=== PATIENT | female | born 1965 | race Caucasian/White ===

== ENCOUNTER 2019-10-22 17:29 | Emergency (ER) | payer SELFPAY ==
[2019-10-22 17:36] VITALS: BP 157/94; PULSE 102; RESP 18; TEMP 37.2; O2SAT 100; BMI 22.3
--- NOTE | 2019-10-22 17:37 | ED_ITS ---
Documented by User: Bessy Beltran DO 10/22/19 18:23 HPI - Neuro Symptoms/Deficit General: Chief Complaint: Extremity Injury, Upper Stated Complaint: arm numbness Time Seen by Provider: 10/22/19 17:36 History of Present Illness: HPI Narrative: Pt c/o pain in her right breast and down her axilla and down her right arm, It has gone on for 4 years on and off. 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 no fever no sob Onset (ago): year(s) Location: right arm History of same: Yes Severity: similar to previous episodes Quality: numb, tingling and other (heavy) Relieving factors: none Exacerbating factors: none Context: gradual onset Associated symptoms: Reports no associated symptoms; Deny headache(s), nausea or vomiting Review of Systems General: Reports: 10 or more systems reviewed and unremarkable except in HPI and below Const: Denies: fever, chills or fatigue ENMT: Denies: throat pain Card: Denies: swelling of feet/ankles Resp: Denies: shortness of breath or productive cough GI: Denies: abdominal pain, nausea, vomiting, diarrhea, constipation or blood in stool : Denies: difficulty urinating Musc: Denies: back pain or extremity swelling Skin/Breast: Denies: rash Neuro: Reports: numbness in extremities and weakness in extremities (heaviness); Denies: headache PFSH ED PFSH: Social History Smoking and tobacco status: never smoked Physical Exam Const: COMMON NORMALS: no apparent distress and oriented x3 GENERAL APPEARANCE: cooperative; not in distress HENMT: COMMON NORMALS: normocephalic HEAD & SCALP: normal to inspection and normocephalic MOUTH: oral and palatal mucosa normal and lip normal THROAT: posterior oropharynx normal and tonsils normal Neck/C-Spine: COMMON NORMALS: full ROM, no lymphadenopathy, supple and no meningeal signs GENERAL: Yes normal visual inspection and Yes trachea midline Chest: COMMONS NORMALS: inspection of chest normal and inspection of breasts normal (no lumps or bumps) BREAST/AXILLA INSPECTION: Yes normal inspection of the axillae NIPPLE/AREOLA: Yes nipples/areola normal Resp: COMMON NORMALS: normal respiratory effort and clear to auscultation bilaterally EFFORT & INSPECTION: Yes able to speak in complete sentences and No respiratory distress AUSCULTATION: clear to auscultation bilaterally, no rales, no rhonchi and no wheezes Cardio: COMMON NORMALS: regular rate, regular rhythm, S1 normal heart sound, S2 normal heart sound and no murmurs RATE: regular rate RHYTHM: regular rhythm HEART SOUNDS: S1 normal and S2 normal PERIPHERAL PULSES: radial pulses present and dorsalis pedis pulses present GI: COMMON NORMALS: normal to inspection, nondistended, normoactive bowel sounds, soft to palpation and non-tender INSPECTION: Yes normal to inspection AUSCULTATION: Yes normoactive bowel sounds PALPATION: Yes soft, No tender, No guarding and No rigid RECTAL EXAM: deferred : COMMON NORMALS: Yes no CVA tenderness BLADDER/KIDNEY EXAM: Yes no CVA tenderness Back/Pelvis: COMMON NORMALS: no CVA tenderness Extremity: COMMON NORMALS: normal to inspection, full ROM, normal capillary refill, no calf tenderness and no pedal edema Neuro: COMMON NORMALS: oriented x3, CN's II-XII intact bilaterally, moves all extremities and no focal motor deficits MENINGEAL SIGNS: Yes no meningeal signs Skin: COMMON NORMALS: no rashes or lesions noted GENERAL SKIN EXAM: no rashes or lesions noted Course Vital Signs: Vital signs: Vital Signs Temperature 98.9 F 10/22/19 17:36 Pulse Rate 88 10/22/19 19:11 Respiratory Rate 16 10/22/19 19:11 Blood Pressure 138/84 10/22/19 19:11 Pulse Oximetry 99 10/22/19 19:11 MDM - Neuro Symptoms/Deficit Lab Data: Labs: Lab Results 10/22/19 10/22/19 10/22/19 Range/Units 20:45 20:45 20:45 WBC 7.4 (4.0-10.0) 10^3/ uL RBC 4.55 (4.1-5.3) 10^6/u L Hgb 13.5 (11.5-15.3) g/dL Hct 41.0 (37.0-47.0) % MCV 90.1 (81-99) fL MCH 29.7 (28.0-34.0) pg MCHC 32.9 (30.0-36.0) g/dL RDW 12.3 (12.1-15.1) % Plt Count 334 (130-400) 10^3/c mm MPV 10.0 (7.4-10.4) fL Neut % (Auto) 48.9 % Lymph % (Auto) 41.3 % [place] % (Auto) 7.6 % Eos % (Auto) 1.6 % Baso % (Auto) 0.5 % Neut # (Auto) 3.6 (1.8-7.7) 10^3/u L Lymph # (Auto) 3.1 (0.8-4.8) 10^3/u L [place] # (Auto) 0.6 (0.2-0.9) 10^3/u L Eos # (Auto) 0.1 (0.0-0.8) 10^3/u L Baso # (Auto) 0.0 (0.0-0.1) 10^3/u L Nucleated RBC % (a uto) 0 % Nucleated RBCs # 0.0 /100WBC Sodium 143 (136-145) mmol/L Potassium 3.9 (3.5-5.1) mmol/L Chloride 103 (98-107) mmol/L Carbon Dioxide 30 H (22-29) mmol/L Anion Gap 13.9 (5-19) BUN 13 (6-20) mg/dL Creatinine 0.8 (0.5-0.9) mg/dL GFR Calculation 75.0 L (90-130) mL/min Glucose 93 (65-115) mg/dL Calculated Osmolal ity 292 (285-295) mOsm/k g Calcium 9.8 (8.5-10.5) mg/dL Total Bilirubin 0.4 (0.15-1.2) mg/dL AST 17 (0-32) U/L ALT 19 (0-33) U/L Alkaline Phosphata se 106 H (35-105) IU/L Troponin T Baselin e 6 (0-10) ng/mL Total Protein 7.1 (6.6-8.7) g/dL Albumin 4.1 (3.5-5.2) g/dL Globulin 3.0 (1.3-4.6) g/dL Discharge Plan Discharge Patient Disposition: Home, Self-Care Clinical Impression: Breast pain, Pulmonary nodule Condition: Stable Prescriptions: No Action hydrocodone-acetaminophen 5-325 mg Tablet 1 tab PO DAILY PRN (Reason: Pain) RF: 0 ibuprofen 200 mg Tablet 200 mg PO Q6H PRN (Reason: Pain) RF: 0 pregabalin 100 mg Capsule 100 mg PO BID RF: 0 tramadol 200 mg Tablet Extended Release 24 Hr 200 mg PO DAILY RF: 0 doxepin 6 mg Tablet 6 mg PO BEDTIME RF: 0 honey 5.5 gram/5 mL Syrup 5.5 g PO DAILY RF: 0 Discharge Orders: Discharge Order (Routine); Ordered 10/22/19 Ordered By: Marti Lunsford Referrals: Collin Urban MD [Physician] - 1-3 days Olive Wilkes DO [Physician] - 1-3 days Discharge Diet: Advance as tolerated Discharge Activity: Resume usual activity Patient Instructions: Breast Pain, Pulmonary Nodules (ED) Activity Restrictions/Additional Instructions: Please return to the ER immediately for any of the signs or symptoms listed on your discharge instruction sheets, worsening/changing of your symptoms, you are not getting better as quickly as expected, or for ANY other cause or concerns. If you develop chest pain, shortness of breath, numbness or weakness in your arm or have any other concerns return to the ER immediately for recheck. You are leaving without complete evaluation of your heart as I have recommended you stay for another blood test but you have declined. Of course any heart problem can be life-threatening so if you change your mind or your symptoms change or worsen please return to the ER immediately. Discharge Date/Time: 10/22/19 22:18 Sign Out Sign Out Data: Patient Sign Out occurred on 10/22/19 at 18:27. Patient's care was discussed, and care was transferred from to Marti Lunsford. Coding Level of Care Code ED Entry Level Installation Technician for Chg Fwd Exam Comprehensive Documented by User: Marti Lunsford 10/23/19 00:09 HPI - Neuro Symptoms/Deficit General: Chief Complaint: Extremity Injury, Upper Stated Complaint: arm numbness Time Seen by Provider: 10/22/19 17:36 PFSH ED PFSH: Social History Smoking and tobacco status: never smoked Course Vital Signs: Vital signs: Vital Signs Temperature 98.9 F 10/22/19 17:36 Pulse Rate 88 10/22/19 19:11 Respiratory Rate 16 10/22/19 19:11 Blood Pressure 138/84 10/22/19 19:11 Pulse Oximetry 99 10/22/19 19:11 MDM - Neuro Symptoms/Deficit MDM Narrative: Medical decision making narrative: The patient does not want to wait any longer and wants to be discharged. She refuses to wait for a second troponin to be resulted. She states she is here because she wants a referral to get an MRI of her breast to evaluate for breast cancer. The patient understands now that she will have to go to a primary care physician and I will give her the name of Dr. Wilkes who I believe is still accepting new patients. The patient is going to call our referral line as well to see who she can get in with possibly 1 of the distribution engineer. Her pain is been long-term in nature. She states that she is here tonight more so for the referral. I will get this as she needs. She was also notified about her pulmonary nodule and she will follow-up for this as well. She had no questions or concerns and she is agreed to follow this treatment plan. Lab Data: Labs: Lab Results 10/22/19 10/22/19 10/22/19 Range/Units 20:45 20:45 20:45 WBC 7.4 (4.0-10.0) 10^3/ uL RBC 4.55 (4.1-5.3) 10^6/u L Hgb 13.5 (11.5-15.3) g/dL Hct 41.0 (37.0-47.0) % MCV 90.1 (81-99) fL MCH 29.7 (28.0-34.0) pg MCHC 32.9 (30.0-36.0) g/dL RDW 12.3 (12.1-15.1) % Plt Count 334 (130-400) 10^3/c mm MPV 10.0 (7.4-10.4) fL Neut % (Auto) 48.9 % Lymph % (Auto) 41.3 % [place] % (Auto) 7.6 % Eos % (Auto) 1.6 % Baso % (Auto) 0.5 % Neut # (Auto) 3.6 (1.8-7.7) 10^3/u L Lymph # (Auto) 3.1 (0.8-4.8) 10^3/u L [place] # (Auto) 0.6 (0.2-0.9) 10^3/u L Eos # (Auto) 0.1 (0.0-0.8) 10^3/u L Baso # (Auto) 0.0 (0.0-0.1) 10^3/u L Nucleated RBC % (a uto) 0 % Nucleated RBCs # 0.0 /100WBC Sodium 143 (136-145) mmol/L Potassium 3.9 (3.5-5.1) mmol/L Chloride 103 (98-107) mmol/L Carbon Dioxide 30 H (22-29) mmol/L Anion Gap 13.9 (5-19) BUN 13 (6-20) mg/dL Creatinine 0.8 (0.5-0.9) mg/dL GFR Calculation 75.0 L (90-130) mL/min Glucose 93 (65-115) mg/dL Calculated Osmolal ity 292 (285-295) mOsm/k g Calcium 9.8 (8.5-10.5) mg/dL Total Bilirubin 0.4 (0.15-1.2) mg/dL AST 17 (0-32) U/L ALT 19 (0-33) U/L Alkaline Phosphata se 106 H (35-105) IU/L Troponin T Baselin e 6 (0-10) ng/mL Total Protein 7.1 (6.6-8.7) g/dL Albumin 4.1 (3.5-5.2) g/dL Globulin 3.0 (1.3-4.6) g/dL Imaging Data^: CT Head: Radiologist's impression: [address] [address] [address] Scan Report Signed Patient: Teresita Velasquez Unit #: [id number] : 1965 Age/Sex: 54 / F ADM Date: 10/22/19 Loc: ER Room/Bed: Attending Dr: Ordering Provider/Ordering MD: Bessy Beltran DO Date of Service: 10/22/19 Procedure(s): CT head wo con* [id number] Accession Number(s): [id number] Report Number: [id number] PROCEDURE INFORMATION: Exam: CT Head Without Contrast Exam date and time: 10/22/2019 6:33 PM Age: 54 years old Clinical indication: Other: RT arm numbness TECHNIQUE: Imaging protocol: Computed tomography of the head without contrast. Total DLP: 765.89 mGy-cm Radiation optimization: All CT scans at this facility use at least one of these dose optimization techniques: automated exposure control; mA and/or kV adjustment per patient size (includes targeted exams where dose is matched to clinical indication); or iterative reconstruction. COMPARISON: No relevant prior studies available. FINDINGS: Brain: Normal. No hemorrhage. Unremarkable white matter. No mass effect. Ventricles: Normal. No ventriculomegaly. Bones/joints: Unremarkable. No acute fracture. Sinuses: Visualized sinuses are unremarkable. No fluid levels. Mastoid air cells: Visualized mastoid air cells are well aerated. Soft tissues: Unremarkable. CT/CT head wo con* [id number] IMPRESSION: No acute intracranial abnormality. Radiation Dose CTDIVOL = (mGy): DLP = 765.89 (mGy-cm) Dictated By: Leonora Staples Signed By: Leonora Staples Signed Date/Time: 10/22/191855 DD/ 54 CT Cervical Spine: Radiologist's impression: [address] [address] [address] Scan Report Signed Patient: Teresita Velasquez Unit #: [id number] : 1965 Age/Sex: 54 / F ADM Date: 10/22/19 Loc: ER Room/Bed: Attending Dr: Ordering Provider/Ordering MD: Bessy Beltran DO Date of Service: 10/22/19 Procedure(s): CT cervical spin wo con* [id number] Accession Number(s): [id number] Report Number: [id number] PROCEDURE INFORMATION: Exam: CT Cervical Spine Without Contrast Exam date and time: 10/22/2019 6:33 PM Age: 54 years old Clinical indication: Numbness; Additional info: Arm numbness TECHNIQUE: Imaging protocol: Computed tomography images of the cervical spine without contrast. Total DLP: 378.08 mGy-cm Radiation optimization: All CT scans at this facility use at least one of these dose optimization techniques: automated exposure control; mA and/or kV adjustment per patient size (includes targeted exams where dose is matched to clinical indication); or iterative reconstruction. COMPARISON: No relevant prior studies available. FINDINGS: Vertebrae: There is no acute fracture. No subluxation. [id number]-[id number] diffuse facet degenerative changes are noted. Discs/Spinal canal/Neural foramina: There are moderate degenerative changes with disc space narrowing and marginal endplate osteophytes throughout the cervical spine greatest at C4-C5 and C5-C6 . Marginal osteophytes and facet hypertrophic changes result in mild narrowing of the central canal and foramina. There is no critical stenosis. Soft tissues: Unremarkable. Lungs: There is an incidental 6.5 mm nodule left upper lobe image 70. The remainder of the visualized lung apices are clear. CT/CT cervical spin wo con* [id number] IMPRESSION: 1. 6.5 mm pulmonary nodule left upper lobe. For patients at low risk (minimal or absent history of smoking and of other known risk factors), recommend CT at 6-12 months, then consider CT at 18-24 months. For patients at high risk (history of smoking or of other known risk factors), recommend CT at 6-12 months, then CT at 18-24 months. (Jones et al., Fleischner Society, 2017) 2. No acute bony abnormality. Degenerative changes are noted. Radiation Dose CTDIVOL = (mGy): DLP = 378.08 (mGy-cm) Dictated By: Leonora Staples Signed By: Leonora Staples Signed Date/Time: 10/22/191903 DD/ 02 CXR: My impression: No acute cardiopulmonary findings. EKG Data^: EKG 1: Attestation: I personally reviewed and interpreted this EKG as follows: EKG interpretation date: 10/22/19 EKG interpretation time: 18:17 Interpretation: Normal sinus rhythm at 80 beats a minute, normal axis, no blocks, normal intervals. No acute ST-T wave changes. EKG 2: Attestation: I personally reviewed and interpreted this EKG as follows: EKG interpretation date: 10/22/19 EKG interpretation time: 21:14 Interpretation: Normal sinus rhythm at 75 beats a minute, no acute ST or T wave changes. Discharge Plan Discharge Patient Disposition: Home, Self-Care Clinical Impression: Breast pain, Pulmonary nodule Condition: Stable Prescriptions: No Action hydrocodone-acetaminophen 5-325 mg Tablet 1 tab PO DAILY PRN (Reason: Pain) RF: 0 ibuprofen 200 mg Tablet 200 mg PO Q6H PRN (Reason: Pain) RF: 0 pregabalin 100 mg Capsule 100 mg PO BID RF: 0 tramadol 200 mg Tablet Extended Release 24 Hr 200 mg PO DAILY RF: 0 doxepin 6 mg Tablet 6 mg PO BEDTIME RF: 0 honey 5.5 gram/5 mL Syrup 5.5 g PO DAILY RF: 0 Discharge Orders: Discharge Order (Routine); Ordered 10/22/19 Ordered By: Marti Lunsford Referrals: Collin Urban MD [Physician] - 1-3 days Olive Wilkes DO [Physician] - 1-3 days Discharge Diet: Advance as tolerated Discharge Activity: Resume usual activity Patient Instructions: Breast Pain, Pulmonary Nodules (ED) Activity Restrictions/Additional Instructions: Please return to the ER immediately for any of the signs or symptoms listed on your discharge instruction sheets, worsening/changing of your symptoms, you are not getting better as quickly as expected, or for ANY other cause or concerns. If you develop chest pain, shortness of breath, numbness or weakness in your arm or have any other concerns return to the ER immediately for recheck. You are leaving without complete evaluation of your heart as I have recommended you stay for another blood test but you have declined. Of course any heart problem can be life-threatening so if you change your mind or your symptoms change or worsen please return to the ER immediately. Discharge Date/Time: 10/22/19 22:18 Sign Out Sign Out Data: Patient Sign Out occurred on 10/22/19 at 18:27. Patient's care was discussed, and care was transferred from to Marti Lunsford. Coding Level of Care Code ED Entry Level Installation Technician for Victor Manuelg Fwd Exam Comprehensive
--- NOTE | 2019-10-22 17:58 | CTR_ITS ---
PROCEDURE INFORMATION: Exam: CT Cervical Spine Without Contrast Exam date and time: 10/22/2019 6:33 PM Age: 54 years old Clinical indication: Numbness; Additional info: Arm numbness TECHNIQUE: Imaging protocol: Computed tomography images of the cervical spine without contrast. Total DLP: 378.08 mGy-cm Radiation optimization: All CT scans at this facility use at least one of these dose optimization techniques: automated exposure control; mA and/or kV adjustment per patient size (includes targeted exams where dose is matched to clinical indication); or iterative reconstruction. COMPARISON: No relevant prior studies available. FINDINGS: Vertebrae: There is no acute fracture. No subluxation. Kwox-nd-amasshzu diffuse facet degenerative changes are noted. Discs/Spinal canal/Neural foramina: There are moderate degenerative changes with disc space narrowing and marginal endplate osteophytes throughout the cervical spine greatest at C4-C5 and C5-C6 . Marginal osteophytes and facet hypertrophic changes result in mild narrowing of the central canal and foramina. There is no critical stenosis. Soft tissues: Unremarkable. Lungs: There is an incidental 6.5 mm nodule left upper lobe image 70. The remainder of the visualized lung apices are clear. CT/CT cervical spin wo con* [id number] IMPRESSION: 1. 6.5 mm pulmonary nodule left upper lobe. For patients at low risk (minimal or absent history of smoking and of other known risk factors), recommend CT at 6-12 months, then consider CT at 18-24 months. For patients at high risk (history of smoking or of other known risk factors), recommend CT at 6-12 months, then CT at 18-24 months. (Jones et al., Fleischner Society, 2017) 2. No acute bony abnormality. Degenerative changes are noted. Radiation Dose CTDIVOL = (mGy): DLP = 378.08 (mGy-cm)
--- NOTE | 2019-10-22 17:59 | CTR_ITS ---
PROCEDURE INFORMATION: Exam: CT Head Without Contrast Exam date and time: 10/22/2019 6:33 PM Age: 54 years old Clinical indication: Other: RT arm numbness TECHNIQUE: Imaging protocol: Computed tomography of the head without contrast. Total DLP: 765.89 mGy-cm Radiation optimization: All CT scans at this facility use at least one of these dose optimization techniques: automated exposure control; mA and/or kV adjustment per patient size (includes targeted exams where dose is matched to clinical indication); or iterative reconstruction. COMPARISON: No relevant prior studies available. FINDINGS: Brain: Normal. No hemorrhage. Unremarkable white matter. No mass effect. Ventricles: Normal. No ventriculomegaly. Bones/joints: Unremarkable. No acute fracture. Sinuses: Visualized sinuses are unremarkable. No fluid levels. Mastoid air cells: Visualized mastoid air cells are well aerated. Soft tissues: Unremarkable. CT/CT head wo con* [id number] IMPRESSION: No acute intracranial abnormality. Radiation Dose CTDIVOL = (mGy): DLP = 765.89 (mGy-cm)
--- NOTE | 2019-10-22 18:00 | ECG_ITS ---
Measurements Intervals [place] Rate: 80 P: 69 NE: 121 QRS: 70 QRSD: 86 T: 58 QT: 357 QTc: 412 SINUS RHYTHM No previous ECG available for comparison Electronically Signed On 10-24-2019 6:38:10 CDT by Ned Hodges M.D. [email or web address]
[2019-10-22 18:05] VITALS: PULSE 97
[2019-10-22 19:11] VITALS: BP 138/84; PULSE 88; RESP 16; O2SAT 99
--- NOTE | 2019-10-22 19:14 | ECG_ITS ---
Measurements Intervals [place] Rate: 80 P: 69 [place]: 121 QRS: 70 QRSD: 86 T: 58 QT: 357 QTc: 412 SINUS RHYTHM No previous ECG available for comparison Electronically Signed On 10-24-2019 6:38:13 CDT by Ned Hodges M.D. [email or web address]
--- NOTE | 2019-10-22 19:14 | XR_ITS ---
WS: [id number] CHEST XRAY TECHNIQUE: Portable chest. CLINICAL INFORMATION: PAIN COMPARISON: None. FINDINGS: Heart: Normal cardiac silhouette. Lungs: Mild chronic emphysematous changes. No acute pulmonary infiltrates. No focal pneumonia. Bones: Normal visualized bony structures. XR/XR chest 1V portable [id number] IMPRESSION: No acute chest findings
[2019-10-22 20:52] LABS: Basophils % 0.5 %; Eosinophils # 0.1 10^3/uL (0.0-0.8); Eosinophils % 1.6 %; Hemoglobin 13.5 g/dL (11.5-15.3); Lymphocytes # 3.1 10^3/uL (0.8-4.8); Lymphocytes % 41.3 %; Mean Corpuscular HGB Conc 32.9 g/dL (30.0-36.0); Mean Corpuscular Hemoglobin 29.7 pg (28.0-34.0); Mean Corpuscular Volume 90.1 fL (81-99); Monocytes # 0.6 10^3/uL (0.2-0.9); Monocytes % 7.6 %; Neutrophils # 3.6 10^3/uL (1.8-7.7); Neutrophils % 48.9 %; Nucleated Red Blood Cells % 0 %; Platelet Count 334 10^3/cmm (130-400); Red Blood Count 4.55 10^6/uL (4.1-5.3); Red Cell Distribution Width 12.3 % (12.1-15.1); White Blood Count 7.4 10^3/uL (4.0-10.0)
[2019-10-22 21:11] LABS: Alanine Aminotransferase 19 U/L (0-33); Albumin Level 4.1 g/dL (3.5-5.2); Alkaline Phosphatase 106 IU/L (35-105); Anion Gap 13.9 (5-19); Aspartate Amino Transferase 17 U/L (0-32); Blood Urea Nitrogen 13 mg/dL (6-20); Calcium 9.8 mg/dL (8.5-10.5); Carbon Dioxide 30 mmol/L (22-29); Chloride 103 mmol/L (98-107); Glucose 93 mg/dL (65-115); Osmolality Calculated 292 mOsm/kg (285-295); Potassium 3.9 mmol/L (3.5-5.1); Sodium 143 mmol/L (136-145); Total Bilirubin 0.4 mg/dL (0.15-1.2); Total Protein 7.1 g/dL (6.6-8.7)
[2019-10-22 21:13] LABS: Troponin(5th) Baseline 6 ng/mL (0-10)
--- NOTE | 2019-10-22 21:14 | ECG_ITS ---
Measurements Intervals [place] Rate: 75 P: 70 MT: 136 QRS: 70 QRSD: 73 T: 62 QT: 371 QTc: 414 SINUS RHYTHM No previous ECG available for comparison Electronically Signed On 10-24-2019 6:44:19 CDT by Ned Hodges M.D. [email or web address]
--- NOTE | 2019-10-23 11:05 | DCPLANNER ---
Patient is to find a primary care physician. computer operations manager called patient to speak with patient about getting a primary care physician. computer operations manager called phone number [phone] and was unable to speak with patient at this time. computer operations manager left a voicemail for patient for patient to return case management assistant phone call.
== END 2019-10-22 22:18 | disposition home or self-care (01) ==
PROVIDERS: Emergency Provider Emergency Medicine
DX: N64.4 Mastodynia (principal); R91.1 Solitary pulmonary nodule
CPT/HCPCS: 12345; 70450; 71045; 72125; 80053; 84484; 85025; 93005; 99283

== ENCOUNTER 2019-11-04 12:00 | Outpatient (CLI) | payer SELFPAY ==
--- NOTE | 2019-11-04 12:00 | US_ITS ---
WS: [id number] ULTRASOUND RIGHT BREAST HISTORY: right breast and axilla pain COMPARISON: Mammogram 05/24/2019 TECHNIQUE: 2-D and Doppler. Ultrasound is directed to the upper outer quadrant of the RIGHT breast and area of pain as directed b y the patient. No mass or distortion. No skin thickening. US/US breast RT limited* [id number] IMPRESSION: BI-RADS: 2-Benign FOLLOW-UP: See Report Return to annual screening mammogram. Annual screening mammography May 0.
== END 2019-11-04 12:01 | disposition home or self-care (01) ==
LOC: RAD 12:02
PROVIDERS: PCP Registered Nurse; Visit Provider Registered Nurse
DX: N64.4 Mastodynia (principal)
CPT/HCPCS: 76642

== ENCOUNTER 2021-08-09 13:04 | Emergency (ER) | payer OTHER, MEDICAID, SELFPAY ==
--- NOTE | 2021-08-09 13:07 | ED_ITS ---
Documented by User: Venu Prasad DO 08/10/21 07:56 HPI - Syncope General: Chief Complaint: Syncope Stated Complaint: SYNCOPE Time Seen by Provider: 08/09/21 13:07 Source: patient Limitations: no limitations History of Present Illness: 55-year-old female presents emergency room complaining of lightheadedness dizziness near syncopal episode today around 8 AM. She had bent down her squatted down to get something and left point got lightheaded and dizzy felt like she was going to pass out. She still is having some dizziness with position change in the exam room she reports increased dizziness. She is on multiple medications including doxepin hydrocodone tramadol and other sleep aid. She is also on Lyrica she said she is try to titrate off of these medications to take nutraceutical medicines instead MD complaint: almost passed out Onset (ago): hour(s) Prodromal symptoms: none Witnessed: No Context: standing up Injuries sustained associated with event: none Associated symptoms: Reports lightheadedness, nausea and vertigo; Deny abdominal pain, chest pain, fever(s), headache(s), short of breath or weakness Treatments prior to arrival: none Review of Systems Const: Denies: fever(s) ENMT: Denies: throat pain, ear or mastoid pain, nasal discharge or nasal congestion Card: Reports: lightheadedness; Denies: chest pain Resp: Denies: dyspnea, productive cough or non-productive cough GI: Reports: nausea; Denies: abdominal pain : Denies: flank pain, difficulty voiding, dysuria, urinary frequency or urinary urgency Skin/Breast: Denies: rash or pruritus Neuro: Reports: vertigo; Denies: headache(s) PFSH ED PFSH: Medical History No significant past medical history Surgical History No pertinent past surgical history Social History Smoking and tobacco status: never smoked Physical Exam Const: COMMON NORMALS: patient oriented x3 and healthy appearing GENERAL APPEARANCE: cooperative and comfortable ORIENTATION/CONSCIOUSNESS: Yes awake, Yes oriented to person, Yes oriented to place and Yes oriented to time HENMT: COMMON NORMALS: normocephalic, atraumatic, external ears normal, EAC's normal, TM's normal bilaterally and Normal nasal mucous membranes and turbinates present HEAD & SCALP: normocephalic and atraumatic NOSE: Normal nasal mucous membranes and turbinates present EXTERNAL EAR: Yes external ears normal EXTERNAL AUDITORY CANAL: EAC's normal TYMPANIC MEMBRANE: TM's normal bilaterally Eye: COMMON NORMALS: Equal, round and reactive pupils present and EOMs intact bilaterally PUPIL: Yes Equal, round and reactive pupils present Neck/C-Spine: COMMON NORMALS: full ROM and supple Resp: COMMON NORMALS: normal respiratory effort, No retractions, No use of accessory muscles and clear to auscultation bilaterally AUSCULTATION: clear to auscultation bilaterally Cardio: COMMON NORMALS: regular rate, regular rhythm and No murmurs present (Cardio) RATE: regular rate RHYTHM: regular rhythm GI: COMMON NORMALS: Normal to inspection, nondistended, normoactive bowel sounds present, Soft to palpation, non-tender and no masses PALPATION: Yes Soft to palpation Extremity: COMMON NORMALS: normal to inspection and full ROM Neuro: COMMON NORMALS: patient oriented x3, moves all extremities and no focal motor deficits SENSORIUM/ORIENTATION: Yes oriented to person, Yes oriented to place and Yes oriented to time OTHER: Normal exam NIH score 0 Psych: COMMON NORMALS: mental status grossly normal, Normal thought process present, cooperative and speech normal SPEECH: Yes normal speech THOUGHT PROCESS: Normal thought process present Skin: COMMON NORMALS: no rashes or lesions noted and no wounds GENERAL SKIN EXAM: no rashes or lesions noted Course Vital Signs: Vital signs: Vital Signs Pulse Rate 91 08/09/21 18:27 Respiratory Rate 22 H 08/09/21 18:27 Blood Pressure 145/76 08/09/21 18:27 Pulse Oximetry 98 08/09/21 18:27 MDM - Syncope Medical Decision Making Vertigo with what sounds like orthostatic syncope syncope. He can use [id number] meclizine as needed. I took patient over from Dr. Cruz he had had her discharge from her syncope she was concerned because she has been having some dizziness as well its been chronic did do a CT head along with CT angio head and neck that were both normal she felt improved after meclizine this is likely peripheral vertigo she is stable for discharge will prescribe her meclizine she is to follow-up with PCP and return if worsening. Medical Records I reviewed the patient's medical records. Lab Data I reviewed the patient's lab results. : 08/09/21 13:10 08/09/21 13:[address] 08/09/21 17:45 IMPRESSION: No acute intracranial abnormality. Head/Neck CTA 08/09/21 17:45 IMPRESSION: No large vessel stenosis or occlusion. IMPRESSION: No stenosis or occlusion. REFERENCES: NASCET CRITERIA. The degree of internal carotid artery stenosis is based on NASCET criteria. Normal is no stenosis. Mild is less than 50% stenosis. Moderate is 50-69% stenosis. Severe is 70% to 99% stenosis. Total occlusion is no detectable patent lumen. Laboratory Results WBC 6.6 10^3/uL (4.0-10.0) 08/09/21 13:10 RBC 5.04 10^6/uL (4.1-5.3) 08/09/21 13:10 Hgb 15.3 g/dL (11.5-15.3) 08/09/21 13:10 Hct 47.0 % (37.0-47.0) 08/09/21 13:10 MCV 93.3 fl (81-99) 08/09/21 13:10 MCH 30.4 pg (28.0-34.0) 08/09/21 13:10 MCHC 32.6 g/dL (30.0-36.0) 08/09/21 13:10 RDW 11.9 % (12.1-15.1) L 08/09/21 13:10 Plt Count 343 10^3/cmm (130-400) 08/09/21 13:10 MPV 10.2 fL (7.4-10.4) 08/09/21 13:10 Neut % (Auto) 64.2 % 08/09/21 13:10 Lymph % (Auto) 27.1 % 08/09/21 13:10 [place] % (Auto) 6.7 % 08/09/21 13:10 Eos % (Auto) 0.5 % 08/09/21 13:10 Baso % (Auto) 1.2 % 08/09/21 13:10 Neut # (Auto) 4.24 10^3/uL (1.8-7.7) 08/09/21 13:10 Lymph # (Auto) 1.8 10^3/uL (0.8-4.8) 08/09/21 13:10 [place] # (Auto) 0.4 10^3/uL (0.2-0.9) 08/09/21 13:10 Eos # (Auto) 0.0 10^3/uL (0.0-0.8) 08/09/21 13:10 Baso # (Auto) 0.1 10^3/uL (0.0-0.1) 08/09/21 13:10 Nucleated RBC % (auto) 0 % 08/09/21 13:10 Nucleated RBCs # 0.0 /100WBC 08/09/21 13:10 Sodium 144 mmol/L (136-145) 08/09/21 13:10 Potassium 4.3 mmol/L (3.5-5.1) 08/09/21 13:10 Chloride 103 mmol/L (98-107) 08/09/21 13:10 Carbon Dioxide 24 mmol/L (22-29) 08/09/21 13:10 Anion Gap 21.3 (5-19) H 08/09/21 13:10 BUN 10 mg/dL (6-20) 08/09/21 13:10 Creatinine 0.7 mg/dL (0.5-0.9) 08/09/21 13:10 GFR Calculation 87.2 mL/min (90-130) L 08/09/21 13:10 Glucose 156 mg/dL (65-115) H 08/09/21 13:10 Calculated Osmolality 300 mOsm/kg (285-295) H 08/09/21 13:10 Calcium 10.3 mg/dL (8.5-10.5) 08/09/21 13:10 Total Bilirubin 0.6 mg/dL (0.15-1.2) 08/09/21 13:10 AST 14 U/L (0-32) 08/09/21 13:10 ALT 11 U/L (0-33) 08/09/21 13:10 Alkaline Phosphatase 86 IU/L (35-105) 08/09/21 13:10 Troponin T Baseline 6 ng/L (0-10) 08/09/21 13:10 Troponin T 120 Minute 6.00 ng/L (0-10) 08/09/21 15:00 Delta Troponin T TNP 08/09/21 15:00 Total Protein 7.2 g/dL (6.6-8.7) 08/09/21 13:10 Albumin 4.7 g/dL (3.5-5.2) 08/09/21 13:10 Globulin 2.5 g/dL (1.3-4.6) 08/09/21 13:10 Urine Color Straw (Yellow) 08/09/21 14:10 Urine Appearance Clear (CLEAR) 08/09/21 14:10 Urine pH 7 (5-7) 08/09/21 14:10 Ur Specific [place] 1.010 (1.005-1.030) 08/09/21 14:10 Urine Protein Neg (Negative) 08/09/21 14:10 Urine Glucose (UA) Norm (Normal) 08/09/21 14:10 Urine Ketones Negative (Negative) 08/09/21 14:10 Urine Blood Neg (Negative) 08/09/21 14:10 Urine Nitrate Negative (Negative) 08/09/21 14:10 Urine Bilirubin Neg (Negative) 08/09/21 14:10 Urine Urobilinogen Norm mg/dL (Negative) 08/09/21 14:10 Ur Leukocyte Esterase Negative (Negative) 08/09/21 14:10 Discharge Plan Discharge Patient Disposition: Home Clinical Impression: Syncope due to orthostatic hypotension, Vertigo Condition: Stable Prescriptions: New meclizine 25 mg tablet 25 mg PO TID PRN (Reason: dizziness) Qty: 20 0RF No Action Lyrica 50 mg Capsule 50 mg PO BID 0RF Cbd Gummies 0.5 tab PO BEDTIME 0RF Frankincense 1 drp PO DAILY 0RF hydrocodone-acetaminophen 5-325 mg Tablet 1 tab PO BEDTIME PRN (Reason: Pain) 0RF tramadol 200 mg Tablet Extended Release 24 Hr 200 mg PO DAILY 0RF doxepin 6 mg Tablet 6 mg PO BEDTIME 0RF Discharge Orders: Discharge ED (Routine); Ordered 08/09/21 Ordered By: Clementina Monae Referrals: Miguel A Yanez FNP [Primary Care Provider] - Discharge Diet: Advance as tolerated Discharge Activity: Resume usual activity Patient Instructions: Vertigo (ED) Activity Restrictions/Additional Instructions: Management will call to make arrangements for her to schedule an outpatient echocardiogram. Coding Level of Care Code ED Insurance Sales Agent for Chg Fwd Exam Comprehensive Documented by User: Clementina Monae MD 08/09/21 19:30 HPI - Syncope General: Chief Complaint: Syncope Stated Complaint: SYNCOPE Time Seen by Provider: 08/09/21 13:07 PFS ED PFSH: Medical History No significant past medical history Surgical History No pertinent past surgical history Social History Smoking and tobacco status: never smoked Physical Exam Const: COMMON NORMALS: no acute distress, patient oriented x3 and healthy appearing HENMT: COMMON NORMALS: normocephalic and atraumatic HEAD & SCALP: norm ocephalic and atraumatic Eye: COMMON NORMALS: Equal, round and reactive pupils present and EOMs intact bilaterally PUPIL: Yes Equal, round and reactive pupils present Neck/C-Spine: COMMON NORMALS: full ROM and supple Chest: COMMONS NORMALS: normal inspection of the chest and normal palpation of entire chest wall Resp: COMMON NORMALS: normal respiratory effort, No retractions, No use of accessory muscles and clear to auscultation bilaterally AUSCULTATION: clear to auscultation bilaterally Cardio: COMMON NORMALS: regular rate, regular rhythm and No murmurs present (Cardio) RATE: regular rate RHYTHM: regular rhythm GI: COMMON NORMALS: Normal to inspection, nondistended, normoactive bowel sounds present, Soft to palpation, non-tender and no masses PALPATION: Yes Soft to palpation Extremity: COMMON NORMALS: normal to inspection and full ROM Neuro: COMMON NORMALS: patient oriented x3, moves all extremities and no focal motor deficits Psych: COMMON NORMALS: mental status grossly normal, Normal thought process present and cooperative THOUGHT PROCESS: Normal thought process present Skin: COMMON NORMALS: no rashes or lesions noted and no wounds GENERAL SKIN EXAM: no rashes or lesions noted Course Vital Signs: Vital signs: Vital Signs Pulse Rate 91 08/09/21 18:27 Respiratory Rate 22 H 08/09/21 18:27 Blood Pressure 145/76 08/09/21 18:27 Pulse Oximetry 98 08/09/21 18:27 MDM - Syncope Medical Decision Making I took patient over from Dr. Cruz he had had her discharge from her syncope she was concerned because she has been having some dizziness as well its been chronic did do a CT head along with CT angio head and neck that were both normal she felt improved after meclizine this is likely peripheral vertigo she is stable for discharge will prescribe her meclizine she is to follow-up with PCP and return if worsening. Lab Data : 08/09/21 13:10 08/09/21 13:[address] 08/09/21 17:45 IMPRESSION: No acute intracranial abnormality. Head/Neck CTA 08/09/21 17:45 IMPRESSION: No large vessel stenosis or occlusion. IMPRESSION: No stenosis or occlusion. REFERENCES: NASCET CRITERIA. The degree of internal carotid artery stenosis is based on NASCET criteria. Normal is no stenosis. Mild is less than 50% stenosis. Moderate is 50-69% stenosis. Severe is 70% to 99% stenosis. Total occlusion is no detectable patent lumen. Laboratory Results WBC 6.6 10^3/uL (4.0-10.0) 08/09/21 13:10 RBC 5.04 10^6/uL (4.1-5.3) 08/09/21 13:10 Hgb 15.3 g/dL (11.5-15.3) 08/09/21 13:10 Hct 47.0 % (37.0-47.0) 08/09/21 13:10 MCV 93.3 fl (81-99) 08/09/21 13:10 MCH 30.4 pg (28.0-34.0) 08/09/21 13:10 MCHC 32.6 g/dL (30.0-36.0) 08/09/21 13:10 RDW 11.9 % (12.1-15.1) L 08/09/21 13:10 Plt Count 343 10^3/cmm (130-400) 08/09/21 13:10 MPV 10.2 fL (7.4-10.4) 08/09/21 13:10 Neut % (Auto) 64.2 % 08/09/21 13:10 Lymph % (Auto) 27.1 % 08/09/21 13:10 [place] % (Auto) 6.7 % 08/09/21 13:10 Eos % (Auto) 0.5 % 08/09/21 13:10 Baso % (Auto) 1.2 % 08/09/21 13:10 Neut # (Auto) 4.24 10^3/uL (1.8-7.7) 08/09/21 13:10 Lymph # (Auto) 1.8 10^3/uL (0.8-4.8) 08/09/21 13:10 [place] # (Auto) 0.4 10^3/uL (0.2-0.9) 08/09/21 13:10 Eos # (Auto) 0.0 10^3/uL (0.0-0.8) 08/09/21 13:10 Baso # (Auto) 0.1 10^3/uL (0.0-0.1) 08/09/21 13:10 Nucleated RBC % (auto) 0 % 08/09/21 13:10 Nucleated RBCs # 0.0 /100WBC 08/09/21 13:10 Sodium 144 mmol/L (136-145) 08/09/21 13:10 Potassium 4.3 mmol/L (3.5-5.1) 08/09/21 13:10 Chloride 103 mmol/L (98-107) 08/09/21 13:10 Carbon Dioxide 24 mmol/L (22-29) 08/09/21 13:10 Anion Gap 21.3 (5-19) H 08/09/21 13:10 BUN 10 mg/dL (6-20) 08/09/21 13:10 Creatinine 0.7 mg/dL (0.5-0.9) 08/09/21 13:10 GFR Calculation 87.2 mL/min (90-130) L 08/09/21 13:10 Glucose 156 mg/dL (65-115) H 08/09/21 13:10 Calculated Osmolality 300 mOsm/kg (285-295) H 08/09/21 13:10 Calcium 10.3 mg/dL (8.5-10.5) 08/09/21 13:10 Total Bilirubin 0.6 mg/dL (0.15-1.2) 08/09/21 13:10 AST 14 U/L (0-32) 08/09/21 13:10 ALT 11 U/L (0-33) 08/09/21 13:10 Alkaline Phosphatase 86 IU/L (35-105) 08/09/21 13:10 Troponin T Baseline 6 ng/L (0-10) 08/09/21 13:10 Troponin T 120 Minute 6.00 ng/L (0-10) 08/09/21 15:00 Delta Troponin T TNP 08/09/21 15:00 Total Protein 7.2 g/dL (6.6-8.7) 08/09/21 13:10 Albumin 4.7 g/dL (3.5-5.2) 08/09/21 13:10 Globulin 2.5 g/dL (1.3-4.6) 08/09/21 13:10 Urine Color Straw (Yellow) 08/09/21 14:10 Urine Appearance Clear (CLEAR) 08/09/21 14:10 Urine pH 7 (5-7) 08/09/21 14:10 Ur Specific [place] 1.010 (1.005-1.030) 08/09/21 14:10 Urine Protein Neg (Negative) 08/09/21 14:10 Urine Glucose (UA) Norm (Normal) 08/09/21 14:10 Urine Ketones Negative (Negative) 08/09/21 14:10 Urine Blood Neg (Negative) 08/09/21 14:10 Urine Nitrate Negative (Negative) 08/09/21 14:10 Urine Bilirubin Neg (Negative) 08/09/21 14:10 Urine Urobilinogen Norm mg/dL (Negative) 08/09/21 14:10 Ur Leukocyte Esterase Negative (Negative) 08/09/21 14:10 EKG Data EKG 1: I personally reviewed and interpreted this EKG as follows: EKG interpretation date: 08/09/21 EKG interpretation time: 16:49 Interpretation: nsr hr [address] or t wave abnormalities qrs 85 qtc 411 Discharge Plan Discharge Patient Disposition: Home Clinical Impression: Syncope due to orthostatic hypotension, Vertigo Condition: Stable Prescriptions: New meclizine 25 mg tablet 25 mg PO TID PRN (Reason: dizziness) Qty: 20 0RF No Action Lyrica 50 mg Capsule 50 mg PO BID 0RF Cbd Gummies 0.5 tab PO BEDTIME 0RF Frankincense 1 drp PO DAILY 0RF hydrocodone-acetaminophen 5-325 mg Tablet 1 tab PO BEDTIME PRN (Reason: Pain) 0RF tramadol 200 mg Tablet Extended Release 24 Hr 200 mg PO DAILY 0RF doxepin 6 mg Tablet 6 mg PO BEDTIME 0RF Discharge Orders: Discharge ED (Routine); Ordered 08/09/21 Ordered By: Clementina Monae Referrals: Miguel A Yanez FNP [Primary Care Provider] - Discharge Diet: Advance as tolerated Discharge Activity: Resume usual activity Patient Instructions: Vertigo (ED) Activity Restrictions/Additional Instructions: Management will call to make arrangements for her to schedule an outpatient echocardiogram. Coding Level of Care Code ED Insurance Sales Agent for Chg Fwd Exam Comprehensive
[2021-08-09 13:08] VITALS: BP 148/86; PULSE 83; RESP 14; O2SAT 100; BMI 20.7
--- NOTE | 2021-08-09 13:08 | ECG_ITS ---
[facility] Test Date: 2021-08-09 Pat Name: Teresita Velasquez Department: Room: Gender: Female Fighting Vehicle Infantryman: : 1965 Requested By: Venu Haas Order Number: [id number] Alyssa MD: Sue Sierra M.D. Measurements Intervals [place] Rate: 78 P: 83 MS: 147 QRS: 81 QRSD: 89 T: 73 QT: 387 QTc: 443 Interpretive Statements SINUS RHYTHM Compared to ECG 10/22/2019 21:14:50 No significant changes Electronically Signed On 08-10-2021 5:09:16 HALL CLERK by Sue Sierra M.D. [id number] f
[2021-08-09] MEDS: sodium chloride 0.9% 1,000 ML 999 ML IV (13:16)
[2021-08-09 13:26] LABS: Basophils # 0.1 10^3/uL (0.0-0.1); Basophils % 1.2 %; Eosinophils % 0.5 %; Hemoglobin 15.3 g/dL (11.5-15.3); Lymphocytes # 1.8 10^3/uL (0.8-4.8); Lymphocytes % 27.1 %; Mean Corpuscular HGB Conc 32.6 g/dL (30.0-36.0); Mean Corpuscular Hemoglobin 30.4 pg (28.0-34.0); Mean Corpuscular Volume 93.3 fl (81-99); Mean Platelet Volume 10.2 fL (7.4-10.4); Monocytes # 0.4 10^3/uL (0.2-0.9); Monocytes % 6.7 %; Neutrophils # 4.24 10^3/uL (1.8-7.7); Neutrophils % 64.2 %; Nucleated Red Blood Cells % 0 %; Platelet Count 343 10^3/cmm (130-400); Red Blood Count 5.04 10^6/uL (4.1-5.3); Red Cell Distribution Width 11.9 % (12.1-15.1); White Blood Count 6.6 10^3/uL (4.0-10.0)
[2021-08-09 13:52] LABS: Alanine Aminotransferase 11 U/L (0-33); Albumin Level 4.7 g/dL (3.5-5.2); Alkaline Phosphatase 86 IU/L (35-105); Anion Gap 21.3 (5-19); Aspartate Amino Transferase 14 U/L (0-32); Blood Urea Nitrogen 10 mg/dL (6-20); Calcium 10.3 mg/dL (8.5-10.5); Carbon Dioxide 24 mmol/L (22-29); Chloride 103 mmol/L (98-107); Globulin 2.5 g/dL (1.3-4.6); Glomerular Filtration Rate 87.2 mL/min (90-130); Glucose 156 mg/dL (65-115); Osmolality Calculated 300 mOsm/kg (285-295); Potassium 4.3 mmol/L (3.5-5.1); Sodium 144 mmol/L (136-145); Total Bilirubin 0.6 mg/dL (0.15-1.2); Total Protein 7.2 g/dL (6.6-8.7)
[2021-08-09 13:53] LABS: Troponin(5th) Baseline 6 ng/L (0-10)
[2021-08-09 14:35] LABS: Add Urine Microscopic? NO; Charge for UA Resulting for Rev
[2021-08-09 14:44] LABS: Bilirubin Urine Neg (Negative); Blood Urine Neg (Negative); Glucose Urine UA Norm (Normal); Ketones Urine Negative (Negative); Leukocyte Esterase Urine Negative (Negative); Nitrate Urine Negative (Negative); Protein Urine Neg (Negative); Urine Appearance Clear (CLEAR); Urine Color Straw (Yellow); Urobilinogen Urine Norm (Negative); pH Urine 7 (5-7)
--- NOTE | 2021-08-09 15:08 | ECG_ITS ---
[facility] Test Date: 2021-08-09 Pat Name: Teresita Velasquez Department: Room: Gender: Female Olive Brine Tester: : 1965 Requested By: Venu Haas Order Number: [id number] Alyssa MD: Sue Sierra M.D. Measurements Intervals [place] Rate: 78 P: 75 MT: 134 QRS: 73 QRSD: 85 T: 65 QT: 377 QTc: 432 Interpretive Statements SINUS RHYTHM MINIMAL VOLTAGE CRITERIA FOR LVH, CONSIDER NORMAL VARIANT [MEETS CRITERIA IN ONE OF: R(aVL), S(V1), R(V5), R(V5/V6)+S(V1)] Compared to ECG 08/09/2021 13:36:59 No significant changes Electronically Signed On 08-10-2021 5:22:27 APPLICATION INFRASTRUCTURE ENGINEER by Sue Sierra M.D. [id number]
[2021-08-09 15:11] VITALS: BP 140/78; BP 149/85; BP 164/103; PULSE 85; PULSE 89; PULSE 97
[2021-08-09] MEDS: meclizine 25 mg tablet 50 MG PO (17:19)
--- NOTE | 2021-08-09 17:45 | CTR_ITS ---
PROCEDURE INFORMATION: Exam: CT Head Without Contrast Exam date and time: 08/09/2021 5:45 PM Age: 55 years old Clinical indication: Patient HX: C/O dizziness and near syncope; Additional info: Vertigo TECHNIQUE: Imaging protocol: Computed tomography of the head without contrast. Radiation optimization: All CT scans at this facility use at least one of these dose optimization techniques: automated exposure control; mA and/or kV adjustment per patient size (includes targeted exams where dose is matched to clinical indication); or iterative reconstruction. COMPARISON: No relevant prior studies available. RADIATION DOSE METRICS: Total DLP (mGy-cm): 781.13 FINDINGS: Brain: Normal. No hemorrhage. Unremarkable white matter. No mass effect. Cerebral ventricles: No ventriculomegaly. Paranasal sinuses: Visualized sinuses are unremarkable. No fluid levels. Mastoid air cells: Visualized mastoid air cells are well aerated. Bones/joints: Unremarkable. No acute fracture. Soft tissues: Unremarkable. CT/CT head wo con* [id number] IMPRESSION: No acute intracranial abnormality.
--- NOTE | 2021-08-09 17:45 | CTR_ITS ---
PROCEDURE INFORMATION: Exam: CT Angiography Head With Contrast, Arteriography Exam date and time: 08/09/2021 5:45 PM Age: 55 years old Clinical indication: Dizziness and giddiness; Patient HX: C/O dizziness and near syncope; Additional info: Vertigo TECHNIQUE: Imaging protocol: Computed tomography angiography of the head with contrast. Exam focused on the arteries. 3D rendering (Not supervised by radiologist): MIP and/or 3D reconstructed images were created by the technologist. Radiation optimization: All CT scans at this facility use at least one of these dose optimization techniques: automated exposure control; mA and/or kV adjustment per patient size (includes targeted exams where dose is matched to clinical indication); or iterative reconstruction. Contrast material: OMNI 350; Contrast volume: 75 ml; Contrast route: INTRAVENOUS (IV); COMPARISON: CT head wo con* [id number] 08/09/2021 6:12 PM RADIATION DOSE METRICS: Total DLP (mGy-cm): 1224.98 FINDINGS: ANTERIOR CIRCULATION: Right internal carotid artery: Unremarkable. Intracranial segment is patent with no significant stenosis. No aneurysm. Right middle cerebral artery: Unremarkable. No occlusion or significant stenosis. No aneurysm. Right anterior cerebral artery: Unremarkable. No occlusion or significant stenosis. No aneurysm. Left internal carotid artery: Unremarkable. Intracranial segment is patent with no significant stenosis. No aneurysm. Left middle cerebral artery: Unremarkable. No occlusion or significant stenosis. No aneurysm. Left anterior cerebral artery: Unremarkable. No occlusion or significant stenosis. No aneurysm. POSTERIOR CIRCULATION: Right vertebral artery: Unremarkable. No occlusion or significant stenosis. No aneurysm. Left vertebral artery: Unremarkable. No occlusion or significant stenosis. No aneurysm. Basilar artery: Unremarkable. No occlusion or significant stenosis. No aneurysm. Right posterior cerebral artery: Unremarkable. No occlusion or significant stenosis. No aneurysm. Left posterior cerebral artery: Unremarkable. No occlusion or significant stenosis. No aneurysm. Brain: No definite mass, mass effect, or midline shift. Cerebral ventricles: No ventriculomegaly. Bones/joints: Unremarkable. No acute fracture. Soft tissues: Unremarkable. PROCEDURE INFORMATION: Exam: CT Angiography Neck With Contrast Exam date and time: 08/09/2021 5:45 PM Age: 55 years old Clinical indication: Dizziness and giddiness; Patient HX: C/O dizziness and near syncope; Additional info: Vertigo TECHNIQUE: Imaging protocol: Computed tomography angiography of the neck with contrast. 3D rendering (Not supervised by radiologist): MIP and/or 3D reconstructed images were created by the technologist. Radiation optimization: All CT scans at this facility use at least one of these dose optimization techniques: automated exposure control; mA and/or kV adjustment per patient size (includes targeted exams where dose is matched to clinical indication); or iterative reconstruction. Contrast material: OMNI 350; Contrast volume: 75 ml; Contrast route: INTRAVENOUS (IV); COMPARISON: CT head wo con* [id number] 08/09/2021 6:12 PM RADIATION DOSE METRICS: Total DLP (mGy-cm): 1224.98 FINDINGS: Right common carotid artery: No stenosis. No dissection or occlusion. Right internal carotid artery: No stenosis of the extracranial segment. No dissection or occlusion. Right external carotid artery: No occlusion or stenosis of the origin. Left common carotid artery: No stenosis. No dissection or occlusion. Left internal carotid artery: No stenosis of the extracranial segment. No dissection or occlusion. Left external carotid artery: No occlusion or stenosis of the origin. Right vertebral artery: No stenosis. No dissection or occlusion. Left vertebral artery: No stenosis. No dissection or occlusion. Soft tissues: Normal. No significant soft tissue swelling. Bones/joints: No acute fracture. CT/CT angio headneck* [id number] IMPRESSION: No large vessel stenosis or occlusion. IMPRESSION: No stenosis or occlusion. REFERENCES: NASCET CRITERIA. The degree of internal carotid artery stenosis is based on NASCET criteria. Normal is no stenosis. Mild is less than 50% stenosis. Moderate is 50-69% stenosis. Severe is 70% to 99% stenosis. Total occlusion is no detectable patent lumen.
[2021-08-09] MEDS: iohexol 350 mg/mL 100 mL Btl IV (18:15)
[2021-08-09] MEDS: diphenhydrAMINE 50 mg/mL SDV 1mL IVP (18:21)
[2021-08-09] MEDS: metoclopramide 5 mg/mL SDV 2 mL 10 MG IVP (18:21)
[2021-08-09 18:27] VITALS: BP 145/76; PULSE 91; RESP 22; O2SAT 98
--- NOTE | 2021-08-09 19:08 | ECG_ITS ---
[facility] Test Date: 2021-08-09 Pat Name: Teresita Velasquez Department: Room: Gender: Female Account Support Associate: : 1965 Requested By: Venu Haas Order Number: [id number] Alyssa MD: Sue Sierra M.D. Measurements Intervals [place] Rate: 87 P: 81 MT: 142 QRS: 76 QRSD: 84 T: 64 QT: 383 QTc: 461 Interpretive Statements SINUS RHYTHM Compared to ECG 08/09/2021 16:49:49 No significant changes Electronically Signed On 08-10-2021 5:19:07 PLUMBER AND TINNER by Sue Sierra M.D. [id number]
--- NOTE | 2021-08-10 10:04 | DCPLANNER ---
Addendum entered by Viki Fontenot 09/16/21 09:19: Patient had an outpatient echo scheduled for 09.06.21 - patient did attend appointment. Addendum entered by Viki Fontenot 08/28/21 10:31: Patient has a follow up appointment scheduled for Monday, September 06, 2021 at 10:15 for an echo. Centralized scheduling will call patient with appointment information. Original Note: technical sales manager had message to schedule an outpatient echo cardiogram for patient. technical sales manager faxed signed order to centralized scheduling, who will call patient with appointment information.
== END 2021-08-09 19:29 | disposition home or self-care (01) ==
PROVIDERS: Family Medicine; Emergency Provider Emergency Medicine; PCP Registered Nurse
DX: I95.1 Orthostatic hypotension (principal); R42 Dizziness and giddiness
CPT/HCPCS: 70450; 70496; 70498; 80053; 81003; 84484; 85025; 93005; 96361; 96374; 96375; 99284; J1200; J2765; J7030; J8597; Q9967

== ENCOUNTER → 2021-08-16 16:20 | Outpatient (BNVA) | payer OTHER, MEDICAID, SELFPAY | PROVIDERS: PCP Registered Nurse; Visit Provider Nurse Practitioner Family | DX: I95.1 Orthostatic hypotension (principal) | CPT/HCPCS: 84436; 84443 ==

== ENCOUNTER 2021-09-06 09:56 | Outpatient (CLI) | payer OTHER, MEDICAID, SELFPAY ==
--- NOTE | 2021-09-06 10:09 | USCV_ITS ---
Teresita Velasquez Age: 55 Gender: F : 1965 Exam Date: 09/06/2021 10:43 Ordering Phys: Venu Prasad DO Technologist: DANIELE Exam Location: [facility] [place] Indication: Syncopial episode BP: 130 / 70 HR: 98 Rhythm: Sinus Technical Quality: Adequate MEASUREMENTS (Male / Female) Normal Values 2D ECHO LV Diastolic Diameter PLAX 4.4 cm 4.2 - 5.9 / 3.9 - 5.3 cm LV Systolic Diameter PLAX 2.8 cm IVS Diastolic Thickness 0.9 cm 0.6 - 1.0 / 0.6 - 0.9 cm IVS Systolic Thickness 1.1 cm LVPW Diastolic Thickness 0.9 cm 0.6 - 1.0 / 0.6 - 0.9 cm LVPW Systolic Thickness 1.3 cm LVOT Diameter 2.0 cm LV Ejection Fraction 2D Teich 65.3 % LV Ejection Fraction MOD 2C 63.6 % LV Ejection Fraction 2C AL 67.5 % LA Diameter 2.4 cm LA Width 2.2 cm LA Height 3.0 cm RA Width 2.3 cm RA Height 3.5 cm Aorta at Sinotubular Diameter 1.9 cm M-MODE Aortic Annulus Diameter 2.3 cm LA Ao Ratio MM 1.2 MV E Point Septal Separation 0.6 cm DOPPLER AV Peak Velocity 103.0 cm/s LVOT Peak Velocity 90.0 cm/s AV Area Cont Eq vti 2.7 cm squared AV Area Cont Eq pk 2.7 cm squared MV Area PHT 5.0 cm squared Mitral E to A Ratio 0.8 MV E' Velocity 30.2 cm/s Mitral E to MV E' Ratio 7.9 Mitral E to LV E' Lateral Ratio 8.8 Mitral E to LV E' Septal Ratio 7.2 TR Peak Velocity 283.0 cm/s TR Peak Gradient 32.0 mmHg TV Peak E Velocity 57.0 cm/s Right Atrial Pressure 3.0 mmHg Pulmonary Artery Systolic Pressu 35.0 mmHg PV Peak Velocity 82.0 cm/s RV Acceleration Time 0.1 s RV Ejection Time 0.2 s RV AcT/ET 0.5 FINDINGS Left Ventricle Normal left ventricular size. LV systolic function is normal with EF of 55-60%. No regional wall motion abnormalities. Grade 1 diastolic dysfunction Right Ventricle The right ventricle is normal in size and function. Right Atrium The right atrium is normal in size. Left Atrium The left atrium is normal in size. Mitral Valve Structurally normal mitral valve without significant stenosis or prolapse. There is trace mitral regurgitation. Aortic Valve Structurally normal aortic valve without significant sclerosis or stenosis. There is no aortic regurgitation. Tricuspid Valve Structurally normal tricuspid valve without significant stenosis or regurgitation. Insufficient TR jet to calculate RVSP Pulmonic Valve Structurally normal pulmonic valve without significant stenosis. There is trace pulmonic regurgitation. Pericardium Normal pericardium without effusion. Aorta Normal ascending aorta dimension. CONCLUSIONS LV systolic function is normal with EF of 55-60% Grade 1 diastolic dysfunction Trace mitral regurgitation Trace pulmonic regurgitation No comparison studies are available Sanket Wagner MD (Electronically Signed) Final Date: 06 September 2021 11:29 S
== END 2021-09-06 09:57 | disposition home or self-care (01) ==
PROVIDERS: PCP Registered Nurse; Visit Provider Registered Nurse
DX: R55 Syncope and collapse (principal); I34.0 Nonrheumatic mitral (valve) insufficiency
CPT/HCPCS: 93306

== ENCOUNTER 2021-10-18 11:27 | Outpatient (CLI) | payer OTHER, MEDICAID, SELFPAY ==
[2021-10-18 11:40] VITALS: BMI 20.4
--- NOTE | 2021-10-18 11:40 | ECG_ITS ---
[facility] Test Date: 2021-10-18 Pat Name: Teresita Velasquez Department: Room: Gender: Female Cow Tender: Teresita Ibrahim : 1965 Requested By: Mekhi Matos Order Number: [id number] Alyssa MD: Storm Dutton M.D. Interpretive Statements NAME OF STUDY: TREADMILL STRESS TEST INDICATION: htn, PROCEDURE: At the baseline, the patient's blood pressure was 144/67 with a heart rate of 88. The baseline electrocardiogram showed normal sinus rhythm with normal ST-Ts.. The patient exercised for 7 minutes and 44 seconds on a standard Nazario protocol. Patient attained a maximum heart rate of 154 beats per minute(93% of the maximum predicted heart rate) with a blood pressure at the peak exercise of 212/65 mm Hg. The EKG at the peak exercise revealed no significant changes. Patient did not have any chest pain or any significant cardiac arrhythmias with the exercise During the recovery phase, there were no new changes. Blood pressure at the end of the recovery phase was 149/86 mm Hg with a heart rate of 96 per minute. CONCLUSION: 1. No significant EKG changes with the treadmill exercise 2. No exercise-induced chest pain or cardiac arrhythmia 3. For exercise tolerance, attained a maximum of 10.2 METs Electronically Signed On 10-19-2021 8:36:38 CDT by Storm Dutton M.D. [email or web address]
[2021-10-18 12:10] VITALS: BP 149/86; PULSE 95
== END 2021-10-18 11:28 | disposition home or self-care (01) ==
LOC: CDL 11:28
PROVIDERS: PCP Nurse Practitioner Family; Visit Provider Nurse Practitioner Family
DX: I10 Essential (primary) hypertension (principal); R07.9 Chest pain, unspecified; R53.83 Other fatigue
CPT/HCPCS: 93017

== ENCOUNTER → 2021-10-27 13:07 | Outpatient (BNVA) | payer OTHER, MEDICAID, SELFPAY | PROVIDERS: PCP Nurse Practitioner Family; Visit Provider Internal Medicine Pulmonary Disease | DX: R06.02 Shortness of breath (principal); R91.8 Other nonspecific abnormal finding of lung field | CPT/HCPCS: 36415; 82785; 85025; 86003 ==

== ENCOUNTER 2021-12-03 14:01 | Outpatient (CLI) | payer OTHER, MEDICAID, SELFPAY ==
--- NOTE | 2021-12-03 14:09 | MM_ITS ---
WS: [id number] VIEWS: MLO and CC views both breasts. 3D digital tomosynthesis is also included in this exam. Comparison made with prior exam of 05/24/2019. Findings: There was no sign of mass, architectural distortion or suspicious calcification in either breast. He terogeneously dense MM/[place] [id number] Impression: BI-RADS: 2-Benign FOLLOW-UP: 1 Year Follow-up This mammogram was also analyzed by the Computer Aided Detection System R2 Imag e Fish Tender.
== END 2021-12-03 14:02 | disposition home or self-care (01) ==
LOC: RAD 14:04
PROVIDERS: PCP Nurse Practitioner Family; Visit Provider Nurse Practitioner Family
DX: Z12.31 Encounter for screening mammogram for malignant neoplasm of breast (principal)
CPT/HCPCS: 77063; 77067

== ENCOUNTER 2021-12-13 06:05 | Day surgery (SDC) | payer OTHER, MEDICAID, SELFPAY ==
[2021-12-08 14:05] VITALS: BMI 20.7
[2021-12-13] MEDS: sodium chloride 0.9% 1,000 ML 30 ML IV (06:25)
[2021-12-13 06:37] VITALS: BP 143/80; PULSE 59; RESP 18; TEMP 36.8; O2SAT 100
--- NOTE | 2021-12-13 06:46 | ANES.PREANE2 ---
Pre-Anesthetic Assessment Height/Weight: Height 1.55 m Weight 49.895 kg Temp Pulse Resp BP Pulse Ox 98.2 F 59 L 18 143/80 100 12/13/21 06:37 12/13/21 06:37 12/13/21 06:37 12/13/21 06:37 12/13/21 06:37 Preop Diagnosis: Abnormal CT Operation Date: 12/13/21 07:30 Proposed Procedures p EGD 54605/R93.3(Not Applicable) - Emmett Ibrahim MD Familial anesthetic complications: nine Was Beta Janice taken within 24 hours: Yes Was Clonidine taken within 24 hours: N/A Last intake: Intake Last Liquid Date 12/12/21 Last Liquid Time 20:00 Last Solid Date 12/12/21 Last Solid Time 20:00 Social No alcohol and No tobacco Exam alert, oriented x 3, clear to auscultation bilaterally and regular rate & rhythm Airway Mallampati: Class II Dentition: chipped Comments: Comments: poor dentition Pulmonary Asthma never used albuterol CV/HEM Stable Angina (atypical) and Hypertension diastolic dysfunction, MV and PV regurge (mild) None reported Hepatic None reported GI None reported Metabolic None reported Musc/skel Lower Back Pain Neuropsych None reported Anesthetic Plan ASA status: 2 Risk of > 500 ml blood loss (7ml/kg in children): No Medications/Allergies Home Medications Medication Instructions Recorded Confirmed Last Taken Type hydrocodone 5 mg-acetaminophen 325 1 tab PO BEDTIME PRN 10/22/19 12/13/21 12/12/21 History mg tablet tramadol 200 mg tablet,extended 200 mg PO DAILY 10/22/19 12/13/21 12/11/21 History release 24 hr Cbd Gummies 0.5 tab PO BEDTIME 08/09/21 12/13/21 12/11/21 History Frankincense 1 drp PO DAILY 08/09/21 12/13/21 Unknown History albuterol sulfate 90 mcg/actuation 2 puff INHALATION Q6H PRN #8.5 g 11/12/21 12/13/21 Unknown Rx aerosol inhaler losartan 50 mg tablet 50 mg PO DAILY 11/15/21 12/13/21 12/12/21 History metoprolol tartrate 25 mg tablet 12.5 mg PO BID #90 tab 11/22/21 12/13/21 12/12/21 Rx hydroxyzine HCl 25 mg tablet mg 12/13/21 Unknown History Allergies Allergy/AdvReac Type Severity Reaction Status Date / Time clarithromycin [From Biaxin] Allergy Unknown Verified 12/13/21 06:28 levofloxacin [From Levaquin] Allergy ALGY-Anaphy Verified 12/13/21 06:28 laxis Penicillins Allergy ALGY-Rash Verified 12/13/21 06:28 Sulfa (Sulfonamide Allergy ALGY-Rash Verified 12/13/21 06:28 Antibiotics) sulfamethoxazole Allergy ALGY-Rash Verified 12/13/21 06:28 [From Bactrim] trimethoprim [From Bactrim] Allergy ALGY-Rash Verified 12/13/21 06:28 Current Medications Generic Name Dose Route Start Last Admin Trade Name Freq PRN Reason Stop Dose Admin Sodium Chloride 1,000 mls @ 30 mls/hr 12/13/21 06:45 12/13/21 06:25 Sodium Chloride 0.9% IV 12/14/21 06:44 30 mls/hr .Q24H LISA Administration PFSH Anesthesia Medical History (Updated 12/01/21 @ 14:02 by Emmett Ibrahim MD) No significant past medical history Surgical History (Updated 12/01/21 @ 13:33 by Stefani Mittal) No pertinent past surgical history Family History Mother Cancer breast Father Cancer bladder and lung Social History (Updated 12/01/21 @ 13:34 by Stefani Mittal) Smoking and tobacco status: never smoked Alcohol intake: never Data Anesthesia Cardiac Studies: Echocardiogram 09/06/21
--- NOTE | 2021-12-13 07:20 | P.HP_ITS ---
Same Day Surgery H&P Indication for Procedure/HPI DATE OF PROCEDURE: December 13, 2021 CHIEF COMPLAINT/INDICATIONFOR SURGICAL PROCEDURE: Abnormal CT of the esophagus PREOP DIAGNOSIS: Abnormal CT PLANNED PROCEDURE: Operation Date: 12/13/21 07:30 Proposed Procedures p EGD 13748/R93.3(Not Applicable) - Emmett Ibrahim MD Medications/Allergies* Home Medications Medication Instructions Recorded Confirmed Type hydrocodone 5 mg-acetaminophen 325 1 tab PO BEDTIME PRN 10/22/19 12/13/21 History mg tablet tramadol 200 mg tablet,extended 200 mg PO DAILY 10/22/19 12/13/21 History release 24 hr Cbd Gummies 0.5 tab PO BEDTIME 08/09/21 12/13/21 History Frankincense 1 drp PO DAILY 08/09/21 12/13/21 History losartan 50 mg tablet 50 mg PO DAILY 11/15/21 12/13/21 History hydroxyzine HCl 25 mg tablet mg 12/13/21 History Allergies/Adverse Reactions Allergy/AdvReac Type Severity Reaction Status Date / Time clarithromycin [From Biaxin] Allergy Unknown Verified 12/13/21 06:28 levofloxacin [From Levaquin] Allergy ALGY-Anaphy Verified 12/13/21 06:28 laxis Penicillins Allergy ALGY-Rash Verified 12/13/21 06:28 Sulfa (Sulfonamide Allergy ALGY-Rash Verified 12/13/21 06:28 Antibiotics) sulfamethoxazole Allergy ALGY-Rash Verified 12/13/21 06:28 [From Bactrim] trimethoprim [From Bactrim] Allergy ALGY-Rash Verified 12/13/21 06:28 Current Medications: Generic Name Dose Route Start Last Admin Trade Name Freq PRN Reason Stop Dose Admin Sodium Chloride 1,000 mls @ 30 mls/hr 12/13/21 06:45 12/13/21 06:25 Sodium Chloride 0.9% IV 12/14/21 06:44 30 mls/hr .Q24H LISA Administration Pertinent History/Comorbid Conditions* Medical History (Updated 12/01/21 @ 14:02 by Emmett Ibrahim MD) No significant past medical history Surgical History (Updated 08/10/21 @ 07:53 by Venu Prasad DO) No pertinent past surgical history Family History (Updated 10/27/21 @ 11:18 by Marcela Thorne LPN) Mother Cancer Mother breast Father bladder and lung Social History Smoking and tobacco status: never smoked Alcohol intake: never Pertinent Exam Findings alert, oriented x 3, clear to auscultation bilaterally, regular rate & rhythm, operative site marked and procedure specific exam findings Recommendations Surgery/Procedure today Coding Level of Care Code Acute Supervisor Rod Placing for Jennifer Becerril
[2021-12-13 07:46] VITALS: BP 123/68; PULSE 68; RESP 13; TEMP 36.4; O2SAT 100
[2021-12-13 07:56] VITALS: BP 91/73; PULSE 60; RESP 16; O2SAT 100
[2021-12-13 08:00] VITALS: BP 149/74; PULSE 60; RESP 16; O2SAT 100
--- NOTE | 2021-12-13 13:49 | ANE.PACU2 ---
Inpatient post-anesthesia follow up: Airway intact: Yes Vital signs: Temperature 97.5 F Pulse Rate 60 Respiratory Rate 16 Blood Pressure 149/74 Pulse Oximetry 100 Oxygen Delivery Me thod Room Air Oxygen Flow Rate 3 Fraction of Inspir ed Oxygen Hydration adequate: Yes Nausea and vomiting: No Pain level: 1 Mental status: Baseline
[2021-12-14 13:48] LABS: H. Pylori / CLO Test Negative
== END 2021-12-13 08:19 | disposition home or self-care (01) ==
PROVIDERS: PCP Nurse Practitioner Family; Visit Provider Internal Medicine
PROC: 0DJ08ZZ Inspection of Upper Intestinal Tract, Via Natural or Artificial Opening Endoscopic (ICD-10-PCS; CPT 43235; principal; 2021-12-13 07:30)
DX: R93.3 Abnormal findings on diagnostic imaging of other parts of digestive tract (principal); K29.71 Gastritis, unspecified, with bleeding; I10 Essential (primary) hypertension
CPT/HCPCS: 43239; 87077; J2704; J7030